=== PATIENT | female | born 1985 | race Caucasian/White ===

== ENCOUNTER 2017-04-16 17:42 | Emergency (ER) | payer OTHER ==
[~2017-04-16] VITALS: Ht 157.5 cm; Wt 78.2 kg
[2017-04-16] MEDS ORDERED: AMOX500C2 PO (17:46)
[2017-04-16] MEDS ORDERED: ALBU8.5H8 IH (17:46)
[2017-04-16] MEDS ORDERED: ALBUTEROL SULFATE 2.5 MG/0.5 ML NEB SOLUTION NEB ONE (18:11)
[2017-04-16] MEDS ORDERED: IPRATROPIUM BROMIDE 0.5 MG/2.5 ML NEB SOLUTION NEB ONE ×2 (18:11→20:45)
[2017-04-16] MEDS ORDERED: 0.9% SODIUM CHLORIDE 5 ML NEB SOLUTION NEB ONE ×2 (18:11→20:50)
[2017-04-16] MEDS ORDERED: ALBUTEROL SULFATE 5 MG/ML 20 ML NEB SOLN [BULK] NEB ONE (20:45)
[2017-04-16 21:55] VITALS: BP 103/75
[2017-04-16] MEDS ORDERED: ALBUTEROL SULFATE HFA 90 MCG/PUFF 8 GM INHALER IH ONE (22:15)
[2017-04-16] MEDS ORDERED: PredniSONE 20 MG TABLET PO ONE (22:15)
== END 2017-04-16 22:29 | disposition home or self-care (01) ==
LOC: EMS 17:45
DX: J45.901 Unspecified asthma with (acute) exacerbation (principal); R06.02 Shortness of breath
CPT/HCPCS: 71020; 94644; 99285; J7512; J7611; 94640; J3535